=== PATIENT | female | born 1990 | race Native Hawaiian/Other Pacific Islander ===

== ENCOUNTER 2016-08-20 20:55 | Emergency (ER) | payer OTHER ==
[~2016-08-20] VITALS: Ht 170.2 cm; Wt 77.1 kg
[~2016-08-20 20:55] MED LIST: PRENATAL PO
[2016-08-20 23:56] VITALS: BP 118/75; TEMP 99.5
== END 2016-08-20 23:59 | disposition home or self-care (01) ==
LOC: ED 20:55
DX: L03.211 Cellulitis of face (principal); K08.89 Other specified disorders of teeth and supporting structures
CPT/HCPCS: 96365; 96372; 99284; J1885; J3490

== ENCOUNTER 2019-03-23 11:30 | Outpatient (CLI) | payer BC | END 2019-03-23 19:46 | disposition home or self-care (01) | LOC: RAD 11:30 | DX: M25.532 Pain in left wrist (principal) ==